=== PATIENT | male | born 1965 | race Caucasian/White ===

== ENCOUNTER 2017-05-21 09:20 | Emergency (ER) | payer OTHER ==
[~2017-05-21] VITALS: Ht 177.8 cm; Wt 81.6 kg
[~2017-05-21 09:20] MED LIST: CIPROFLOXACIN500 M2 PO; LOVENOX40 MG/0.1 SC; MORPHINE SULFAT15 M3 PO; OXYCONTIN20 M1 PO; TAMSULOSIN HCL0.4 M1 PO; ZOLPIDEM TARTRAT5 M1 PO
[2017-05-21 09:26] VITALS: BP 136/87
--- NOTE | 2017-05-21 09:54 | ED AMS/SEIZURE/WEAK/DIZZY ---
History of Present Illness General Chief Complaint: General Adult Stated Complaint: PER "HE'S HAVING A REAL BAD CASE OF VERITGO" Source: patient, family, old records Exam Limitations: no limitations Vital Signs & Intake/Output Vital Signs & Intake/Output Vital Signs Date Time Temp Pulse Resp B/P B/P Pulse O2 O2 Flow FiO2 Mean Ox Delivery Rate 05/21 0926 96.1 76 18 136/87 99 Room Air Allergies Coded Allergies: No Known Drug Allergies (05/19/16) Reconcile Medications Ciprofloxacin HCl 500 MG TABLET 1 TAB PO BID INFECTION (Reported) Enoxaparin Sodium (Lovenox) 40 MG/0.4 ML SYRINGE 0.4 ML SC DAILY PREVENTION ( Reported) Meclizine HCl 25 MG TABLET 1 TAB PO TIDPRN VERTIGO Morphine Sulfate (Morphine Sulfate ER) 15 MG TABLET.ER 1 TAB PO BIDP PRN PAIN (Reported) Oxycodone HCl (Oxycontin) 20 MG TAB.ER.12H 1 TAB PO TID PAIN (Reported) Tamsulosin HCl 0.4 MG CAP.ER.24H 1 CAP PO DAILY URINE (Reported) Zolpidem Tartrate 5 MG TABLET 1 TAB PO QPMP SLEEP (Reported) Triage Note: PT TO ED FOR ROOM SPINNING DIZZINESS, DRY HEAVES AND NYSTAGMUS WORSE WITH HEAD MOVEMENT. REPORTING DIZZINESS IS IMPROVED WHEN HE RESTS HIS HEAD TO THE SIDE. Triage Nurses Notes Reviewed? yes HPI: 51M PMH migraines presenting with sudden onset of vertigo. Woke up this morning and had severe vertigo which led to nausea and vomiting. Vertigo was positional , worse when moving his head to the right, and relieved by lying on his left side. He is currently not experiencing it but movement brings it on. He noticed nystagmus when he was experiencing vertigo, but is not having any at this time. Never had similar symptoms before. Low risk for CVA, as he does not smoke, does not have dyslipidemia, and has no family history. No recent infections or URI symptoms. Denies headache, vision changes, hearing changes, facial droop, weakness, numbness, paresthesia, chest pain, palpitations, SOB. Past History Travel History Traveled to [place] past 21 day No Medical History Any Pertinent Medical History? see below for history Neurological: migraine EENT: NONE Cardiovascular: NONE Respiratory: NONE Gastrointestinal: NONE Hepatic: NONE Renal: NONE Musculoskeletal: LEFT FOOT SX Psychiatric: NONE Endocrine: NONE Blood Disorders: NONE Cancer(s): CLL SUSTAINABILITY SPECIALIST/Reproductive: PROSTATITIS Surgical History Surgical History: non-contributory Psychosocial History What is your primary language Turkish Tobacco Use: Never used ETOH Use: denies use Illicit Drug Use: denies illicit drug use Family History Hx Contributory? No Review of Systems Review of Systems Constitutional: Reports: no symptoms. EENTM: Reports: no symptoms. Respiratory: Reports: no symptoms. Cardiovascular: Reports: no symptoms. GI: Reports: no symptoms. Genitourinary: Reports: no symptoms. Musculoskeletal: Reports: no symptoms. Skin: Reports: no symptoms. Neurological/Psychological: Reports: see HPI. Hematologic/Endocrine: Reports: no symptoms. Immunologic/Allergic: Reports: no symptoms. All Other Systems: Reviewed and Negative Physical Exam Physical Exam General Appearance: well developed/nourished, no apparent distress Head: atraumatic, normal appearance Eyes: Bilateral: normal appearance. Ears, Nose, Throat: normal ENT inspection, hearing grossly normal Neck: normal inspection, supple, full range of motion Respiratory: normal breath sounds, no respiratory distress Cardiovascular: regular rate/rhythm Gastrointestinal: soft, non-tender Back: normal inspection, normal range of motion Extremities: normal range of motion Neurologic/Psych: no motor/sensory deficits, awake, alert, oriented x 3, normal mood/affect, director of religious activities II-XII nml as tested, PERRL, EOMI, no facial droop, uvula midline, finger to nose normal, normal ISAÍAS, strength and sensation intact, gait deferred Skin: intact, normal color Core Measures ACS in differential dx? No CVA/TIA Diagnosis No Sepsis Present: No Sepsis Focused Exam Completed? No Progress Differential Diagnosis: arrythmia, alcohol intoxication, anemia, benign positional vertigo, CVA/stroke, dehydration, drug intoxication, encephalitis, electrolyte imbalance, GI bleed, hypoglycemia, hypoxia, intracranial Hem., intracranial mass/tumor, labrynthitis, meningitis, Meniere's disease, migraine WYLIE, multiple sclerosis, pneumonia, postural hypotension, presyncope, post- traumatic vertigo, sepsis, seizure disorder, subarachnoid Hem., UTI/pyelo, vertebrobasilar insuff Plan of Care: Orders Procedure Date/time Status PT Evaluate & Treat 05/21 1022 Active Low suspicion for stroke, as patient is asymptomatic at this time and neurological exam is normal. No nystagmus noted. Symptoms are positional, most likely BPPV. Physical therapy consulted for [place]/Padmini maneuvers. Improvement in symptoms following PT eval. Will discharge home with outpatient follow up for vestibular therapy as prescribed by his PCP. Initial ED EKG: none Departure Departure Disposition: HOME OR SELF CARE Condition: Stable Clinical Impression Primary Impression: BPPV (benign paroxysmal positional vertigo) Referrals: Jhonatan Dennis MD (PCP/Family) Additional Instructions: Follow up with your primary care provider for a referral to physical therapy. You can take Meclizine if you have severe symptoms, but not before physical therapy and only if absolutely necessary. If your symptoms worsen, or if you experience new symptoms like vision changes, hearing changes, changes in balance , difficulty walking, speaking or swallowing, weakness or tingling of your arms or legs, or any other new symptoms, return to the emergency room. Departure Forms: Customer Survey General Discharge Information Prescriptions: Current Visit Scripts Meclizine HCl 1 TAB PO TIDPRN #30 TAB
[2017-05-21] MEDS ORDERED: MECLIZINE HCL25 MG PO (10:50)
== END 2017-05-21 10:45 ==
LOC: ERH 09:20
DX: H81.10 Benign paroxysmal vertigo, unspecified ear (principal)
CPT/HCPCS: 97112-GP; 97116-GP; 97161-GP